=== PATIENT | male | born 1995 | race Caucasian/White ===

== ENCOUNTER 2018-11-09 00:53 | Emergency (ER) | payer MEDICAID, OTHER ==
[~2018-11-09] VITALS: Ht 180.3 cm; Wt 68.0 kg
[2018-11-09] MEDS ORDERED: MORPHINE SULFATE 4 MG/ML CPJ (NOT FOR IM USE) IV ONE (01:30)
[2018-11-09] MEDS ORDERED: ONDANSETRON HCL 4MG/2ML INJ IV ONE ×2 (01:30→02:15)
[2018-11-09] MEDS ORDERED: PROPOFOL 200MG/20ML VIAL IV ONE (02:15)
[2018-11-09] MEDS ORDERED: FENTANYL CITRATE/PF 50MCG/ML 2ML VIAL IV ONE (02:15)
[2018-11-09 05:05] VITALS: BP 129/87
== END 2018-11-09 05:20 | disposition home or self-care (01) ==
LOC: ER 00:53
DX: S43.085A Other dislocation of left shoulder joint, initial encounter (principal); Y93.39 Activity, other involving climbing, rappelling and jumping off; Y92.89 Other specified places as the place of occurrence of the external cause
CPT/HCPCS: 23650; 73030; 96374; 96375; 96376; 99152; 99285; J2270; J2405; J2704; J3010; Z7610

== ENCOUNTER 2019-08-08 17:09 | Emergency (ER) | payer MEDICAID ==
[~2019-08-08] VITALS: Ht 177.8 cm; Wt 68.0 kg
[2019-08-08] MEDS ORDERED: LIDOCAINE HCL 1% 20ML VIAL (Pyxis) INJ INFIL ONE (18:00)
[2019-08-08] MEDS ORDERED: KETOROLAC 30MG/ML VIAL IV ONE (18:45)
[2019-08-08] MEDS ORDERED: HYDROCODONE/ACETAMINOPHEN 5/325MG TABLET PO ONE (19:00)
[2019-08-08 20:55] VITALS: BP 124/79
== END 2019-08-08 20:55 | disposition home or self-care (01) ==
LOC: ER 17:36
DX: S43.005A Unspecified dislocation of left shoulder joint, initial encounter (principal); F17.200 Nicotine dependence, unspecified, uncomplicated; Z88.8 Allergy status to other drugs, medicaments and biological substances; X58.XXXA Exposure to other specified factors, initial encounter; Y93.39 Activity, other involving climbing, rappelling and jumping off; Y92.89 Other specified places as the place of occurrence of the external cause; Y99.8 Other external cause status
CPT/HCPCS: 23650; 73030; 96374; 99284; J1885; J3490; Z7610; A4565